=== PATIENT | female | born 1945 | race Two or more races ===

== ENCOUNTER → 2017-09-22 | Emergency (ER) | payer OTHER ==
[~2017-09-22] VITALS: Ht 157.5 cm; Wt 80.3 kg
[~2017-09-22] MED LIST: ANTIVER; AVALIDE; AVAPRO150 MG; CARDICEN; CLONOPIN; HYDRODIURIL12.5 MG; LIPITOR20 MG; NEURONTIN; PLAVIX; PREVACID; RESTORIL; SYNTHROID50 MCG; ZOCOR5 MG PO
== END | disposition home or self-care (01) ==
LOC: ER 08:27
DX: K57.90 Diverticulosis of intestine, part unspecified, without perforation or abscess without bleeding (principal)

== ENCOUNTER 2018-01-24 14:48 | Emergency (ER) | payer OTHER ==
[~2018-01-24] VITALS: Ht 152.4 cm; Wt 77.1 kg
== END 2018-01-24 19:06 | disposition home or self-care (01) ==
LOC: ER 14:48
DX: K52.89 Other specified noninfective gastroenteritis and colitis (principal)

== ENCOUNTER 2019-02-04 10:37 | Emergency (ER) | payer OTHER ==
[~2019-02-04] VITALS: Ht 157.5 cm; Wt 68.9 kg
[2019-02-04] MEDS ORDERED: RESTORA CAPSUL1 EACH (10:50)
[2019-02-04] MEDS ORDERED: CLONAZEPAM1 M1 (10:51)
[2019-02-04] MEDS ORDERED: PREVACID30 MG (10:52)
[2019-02-04] MEDS ORDERED: NEURONTIN300 MG (10:53)
[2019-02-04] MEDS ORDERED: PLAVIX75 MG (10:53)
== END 2019-02-04 14:11 | disposition home or self-care (01) ==
LOC: ER 10:37
DX: M75.82 Other shoulder lesions, left shoulder (principal)

== ENCOUNTER 2023-02-11 07:16 | Emergency (ER) | payer OTHER ==
[~2023-02-11] VITALS: Ht 157.5 cm; Wt 76.2 kg
[~2023-02-11 07:16] MED LIST changes: +CLONAZEPAM1 M1; +NEURONTIN300 MG; +PLAVIX75 MG; +PREVACID30 MG; +RESTORA CAPSUL1 EACH
[2023-02-11] MEDS ORDERED: ATACAND16 MG (07:39)
[2023-02-11] MEDS ORDERED: FLUOXETINE HCL40 MG (07:39)
[2023-02-11] MEDS ORDERED: SINGULAIR10 MG (07:40)
[2023-02-11] MEDS ORDERED: RESTORIL30 M1 (07:41)
== END 2023-02-11 11:45 | disposition home or self-care (01) ==
LOC: ER 07:16
DX: S49.82XA Other specified injuries of left shoulder and upper arm, initial encounter (principal); W18.39XA Other fall on same level, initial encounter; Y93.89 Activity, other specified; Y92.018 Other place in single-family (private) house as the place of occurrence of the external cause; Z88.6 Allergy status to analgesic agent; E11.9 Type 2 diabetes mellitus without complications; E78.00 Pure hypercholesterolemia, unspecified; I10 Essential (primary) hypertension; M79.7 Fibromyalgia; M54.2 Cervicalgia
CPT/HCPCS: 71046; 71110; 73030; 96365; 99284; J1100

== ENCOUNTER 2024-12-26 07:17 | Outpatient (CLI) | payer OTHER ==
[~2024-12-26 07:17] MED LIST changes: +ATACAND16 MG; +FLUOXETINE HCL40 MG; +RESTORIL30 M1; +SINGULAIR10 MG
== END 2024-12-26 07:19 | disposition home or self-care (01) ==
LOC: TOM 07:17
PROVIDERS: ATTEND Internal Medicine Gastroenterology
DX: K56.600 Partial intestinal obstruction, unspecified as to cause (principal); R19.5 Other fecal abnormalities